=== PATIENT | female | born 1965 | race Caucasian/White ===

== ENCOUNTER 2018-07-29 12:22 | Day surgery (SDC) | payer OTHER ==
[~2018-07-29] VITALS: Ht 167.6 cm; Wt 85.2 kg
[2018-07-29 13:04] VITALS: Ht 167.6 cm; Wt 85.2 kg
[2018-07-29 13:43] VITALS: BP 130/66; PULSE 44; RESP 18
[2018-07-29] MEDS ORDERED: LIDOCAINE 100 MG SYRINGE ONE (14:48)
[2018-07-29] MEDS ORDERED: PROPOFOL 20 ML ONE (14:48)
--- NOTE | 2018-07-29 14:59 | PREAC ---
Date/Time of Note Date/Time of Note DATE: 07/29/18 TIME: 14:58 Anesthesia Eval and Record Evaluation Time Pre-Procedure Interview DATE: 07/29/18 TIME: 14:58 Age 52 Sex female NPO: 8 hrs Preoperative diagnosis colorectal cancer screening Planned procedure colonoscopy Past Medical History Past Medical History: Includes GI: Obesity Surgery & Anesthesia Issues No known issue Meds Anticoagulation: No Beta Shilpa within 24 hr: No Reason Beta Shilpa not given: Pt. not on B-Shilpa Reported Medications [None] No Conflict Check 07/29/18 Meds reviewed: Yes Allergies Coded Allergies: No Known Allergy (Unverified , 07/29/18) Allergies Reviewed: Yes Labs/Studies Labs Reviewed: Other (NA) test: N/A Pre-procedure Exam Last vitals Vital Signs Date Temp Pulse Resp B/P (MAP) Pulse Ox O2 O2 Flow FiO2 Time Delivery Rate 07/29/18 97.6 44 18 130/66 98 Room Air 13:43 (87) Airway: Adequate mouth opening Mallampati: Mallampati II Teeth: Normal Lung: Normal Heart: Normal ASA Physical Status ASA physical status: 2 Emergency: None Planned Anesthetic General/MAC: MAC Pre-operative Attestations Prior to commencing anesthesia and surgery, the patient was re-evaluated, there was verification of: *The patient's identity *The results of appropriate recent lab work and preoperative vital signs *The above evaluation not changing prior to induction *Anesthetic plan, risk benefits, alternative and complications discussed with patient/family; questions answered; patient/family understands, accepts and wishes to proceed. KELVIN BOWER Jul 29, 2018 14:59
[2018-07-29] MEDS ORDERED: PROPOFOL 40 ML ONE (15:16)
--- NOTE | 2018-07-29 15:18 | PAC ---
Date/Time of Note Date/Time of Note DATE: 07/29/18 TIME: 15:18 Post-Anesthesia Notes Post-Anesthesia Note Last documented vital signs Vital Signs Date Temp Pulse Resp B/P (MAP) Pulse Ox O2 O2 Flow FiO2 Time Delivery Rate 07/29/18 97.6 44 18 130/66 98 Room Air 15:23 (87) Activity: WNL Respiratory function: WNL Cardiovascular function: WNL Mental status: Baseline Pain reasonably controlled: Yes Hydration appropriate: Yes Nausea/Vomiting absent: Yes ADELAIDA IZAGUIRRE MD Jul 29, 2018 15:18
[2018-07-29 15:45] VITALS: BP 126/70; PULSE 53; RESP 12
== END 2018-07-29 17:12 | disposition home or self-care (01) ==
LOC: GIL 12:22
PROVIDERS: ATTEND Internal Medicine Gastroenterology
DX: Z12.11 Encounter for screening for malignant neoplasm of colon (principal); K64.8 Other hemorrhoids; E66.9 Obesity, unspecified; Z68.30 Body mass index [BMI] 30.0-30.9, adult
CPT/HCPCS: 45378; J2001; Z7610